=== PATIENT | male | born 1950 | race Caucasian/White ===

== ENCOUNTER 2020-01-10 18:13 | Inpatient (IN) | payer MEDICARE ==
--- NOTE | 2020-01-10 19:21 | RAD ---
CHEST ONE VIEW: History: Generalized weakness. Multiple falls. Comparison: None FINDINGS: Cardiomegaly. Normal pulmonary vessels. Patchy interstitial and alveolar opacities. No pleural effusion or pneumothorax. Remote left clavicle fracture. IMPRESSION: Patchy interstitial and alveolar opacities. Correlate for edema or infiltrate. POS: PPP
[2020-01-10 19:22] LABS: Hemoglobin 6.8 g/dL (14.0-18.0); Mean Corpuscular HGB CONC 33.4 g/dL (32.0-36.0); Mean Corpuscular Hemoglobin 28.6 pg (27.0-31.0); Mean Corpuscular Volume 85.6 fL (78.0-98.0); Mean Platelet Volume 9.7 fL (7.4-10.4); Platelet Count 126 thou/uL (130-400); RBC Distribution Width 16.1 % (11.5-14.5); Red Blood Cell (RBC) Count 2.38 mill/uL (4.70-6.10); White Blood Cell (WBC) Count 9.1 thou/uL (4.8-10.8)
[2020-01-10 19:42] LABS: ALT (SGPT) 26 U/L (8-55); AST (SGOT) 32 U/L (5-34); Albumin 2.9 g/dL (3.4-4.8); Alkaline Phosphatase 96 U/L (40-110); Anion Gap 12 mmol/L (10-20); Anisocytosis SLIGHT = 6-15 cells (100X) (0-5/hpf); BUN (Urea Nitrogen) 30 mg/dL (8.4-25.7); Band 4 % (5-11); Bilirubin, Total 0.4 mg/dL (0.2-1.2); CK (CPK) 136 U/L (30-200); Calc. Creatinine Clearance 0 mL/min (70-130); Carbon Dioxide 27 mmol/L (23-31); Chloride 109 mmol/L (98-107); Estimated GFR-MDRD 43; Glucose 128 mg/dL (83-110); Lymphocytes 7 % (21-51); MDiff Complete? YES; Monocytes 21 % (0-10); Myelocyte 2 % (0-0); Neutrophil 66 % (42-75); Platelet Morphology Comment Appears Decreased; Polychromasia SLIGHT = 2-3 cells (100X) (0-2/hpf); Potassium 3.5 mmol/L (3.5-5.1); Protein, Total 5.9 g/dL (5.8-8.1); Sodium 144 mmol/L (136-145)
[2020-01-10 20:09] LABS: CKMB 5.1 ng/mL (0-6.6)
[2020-01-10] MEDS ORDERED: Pantoprazole 40 MG VIAL ONE (20:10)
[2020-01-10] MEDS ORDERED: Pantoprazole 80 MG, Admixture Fee 1 EACH in Sodium Chloride 0.9% 100 ML IVPB SCH (20:30)
[2020-01-10 21:24] LABS: Bilirubin Negative (Negative); Blood, Urine 2+ (Negative); Clarity Clear (Clear); Glucose, Urine (Dipstick) Normal (Negative); Leukocyte Negative Leu/uL (Negative); Mucous/LPF Rare LPF (<2+); Nitrite Negative (Negative); Protein, Urine (Dipstick) 300 mg/dL (Neg-Trace); Renal Epithelial 0-3 HPF (None Seen); Squamous Epithelial None Seen HPF (0-3); Urobilinogen Normal mg/dL (Less than 2); WBC/HPF 0-3 HPF (0-3)
[2020-01-10 21:27] LABS: INR-International Normal Ratio 1.1; PTT 39.6 sec (22.9-36.1); Prothrombin Time 14.5 sec (12.0-14.7)
[2020-01-10 21:35] LABS: Bacteria/HPF Rare-Few HPF (None Seen)
[2020-01-10] MEDS ORDERED: Sodium Chloride 0.9% 1,000 ML IV SCH (22:17)
[2020-01-10] MEDS ORDERED: Ondansetron ODT 4 MG TAB SL PRN (22:17)
[2020-01-10] MEDS ORDERED: Ondansetron PF 4 MG/2 ML Vial IVP PRN (22:17)
[2020-01-10 23:07] VITALS: BMI 25.7
[2020-01-10 23:45] LABS: Troponin I 1.818 ng/mL (< 0.028)
[2020-01-10] MEDS ORDERED: hydrALAZINE 20 MG/ML VIAL SLOW IVP SCH (23:59)
[2020-01-11] MEDS ORDERED: Sodium Chloride 0.9% 1,000 ML IV SCH (02:15)
[2020-01-11 02:22] LABS: Actual Bicarbonate (HCO3a) 24.5 mEq/L (22-28); Analyzer IN Cardio OR; Base Excess (BEa) -0.6 mEq/L (-2.0 to +3.0); CO2 Tension 41.8 mmHg (35.0-45.0); Calcium, Ionized (arterial) 1.06 mmol/L (1.12-1.30); Carboxyhemoglobin (COHb) 0.9 gm% (0.0-3.0); Hemoglobin (Hb) 7.2 g/dL (14.0-18.0); Potassium - ABG Lab 3.68 mmol/L (3.70-5.30); pH, Arterial 7.39 (7.35-7.45)
[2020-01-11 02:28] LABS: Critical Call Chem Troponin I RESULT DECREASING; Troponin I 1.775 ng/mL (< 0.028)
[2020-01-11] MEDS ORDERED: methylPREDNISolone Sod Succ/PF 125 MG/2 ML VIAL IVP SCH (02:30)
[2020-01-11 02:35] LABS: O2 Tension (PaO2), arterial 59.9 mmHg (> 70.0); Puncture Site LRA
[2020-01-11 02:52] LABS: Anion Gap 13 mmol/L (10-20); BUN (Urea Nitrogen) 27 mg/dL (8.4-25.7); Calc. Creatinine Clearance 45 mL/min (70-130); Calcium 7.7 mg/dL (7.8-10.44); Carbon Dioxide 23 mmol/L (23-31); Chloride 110 mmol/L (98-107); Estimated GFR-MDRD 45; Glucose 128 mg/dL (83-110); Potassium 3.4 mmol/L (3.5-5.1); Sodium 143 mmol/L (136-145)
[2020-01-11] MEDS ORDERED: Ondansetron PF 4 MG/2 ML Vial IVP SCH (03:00)
--- NOTE | 2020-01-11 03:11 | PDOC.HHP ---
Hospitalist HPI - History of Present Illness weakness fall History of Present Illness: Case of an 69y/o male who takes no medication at home who comes to hospital due to weakness. patient states that about 1 week ago he [facility], was discharge home about 1 week ago and since then he been feeling extremely weak, and reports multiple episodes of falls. patient states he had one today and got worried because they episodes were getting worse. at arrival pt was dx with symptomatic anemia and refers has been having black stools for some months. patient denies abd pain n/v fever chills cough or diarrhea. pt also denies sob palpitation diaphoresis or chest pain Hospitalist ROS - Medication Medications: Active Medications Generic Name Dose Route Start Last Admin Trade Name Freq PRN Reason Stop Dose Admin Methylprednisolone Sodium Succinate 60 mg 01/11/20 02:30 01/11/20 02:33 Solu-Medrol IVP 01/11/20 04:30 60 mg NOW DYLAN Administration Hospitalist History - Past Medical History Source: patient - Past Surgical History Past Surgical History: reports: no pertinent history - Family History Family History: reports: cancer, cardiac disorder - Social History Smoking Status: Current every day smoker Alcohol: reports: None Drugs: reports: none Activity level: independent ambulation - Exam General Appearance: NAD, awake alert Eye: PERRL, anicteric sclera ENT: normocephalic atraumatic, no oropharyngeal lesions, moist mucosa Neck: supple, symmetric, no JVD, no thyromegaly Heart: RRR, no murmur, no gallops, no rubs Respiratory: CTAB, no wheezes Gastrointestinal: soft, non-tender, non-distended Extremities: no cyanosis, no clubbing Skin: normal turgor, no lesions, no rashes Neurological: cranial nerve grossly intact, normal sensation to touch Musculoskeletal: normal tone, normal strength, no muscle wasting Psychiatric: normal affect, normal behavior, A&O x 3 Hospitalist Results - Labs Result Diagrams: 01/10/20 19:07 01/11/20 02:27 Lab results: WBC 9.1 thou/uL (4.8-10.8) 01/10/20 19:07 Hgb 6.8 g/dL (14.0-18.0) L 01/10/20 19:07 Hct 20.3 % (42.0-52.0) L 01/10/20 19:07 MCV 85.6 fL (78.0-98.0) 01/10/20 19:07 Plt Count 126 thou/uL (130-400) L 01/10/20 19:07 Band Neuts % (Manual) 4 % (5-11) L 01/10/20 19:07 ABG pH 7.39 (7.35-7.45) 01/11/20 02:17 ABG pCO2 41.8 mmHg (35.0-45.0) 01/11/20 02:17 ABG pO2 59.9 mmHg (> 70.0) L* 01/11/20 02:17 Sodium 143 mmol/L (136-145) 01/11/20 02:27 Potassium 3.4 mmol/L (3.5-5.1) L 01/11/20 02:27 Chloride 110 mmol/L (98-107) H 01/11/20 02:27 Carbon Dioxide 23 mmol/L (23-31) 01/11/20 02:27 BUN 27 mg/dL (8.4-25.7) H 01/11/20 02:27 Creatinine 1.53 mg/dL (0.7-1.3) H 01/11/20 02:27 Glucose 128 mg/dL (83-110) H 01/11/20 02:27 Calcium 7.7 mg/dL (7.8-10.44) L 01/11/20 02:27 Total Bilirubin 0.4 mg/dL (0.2-1.2) 01/10/20 19:07 AST 32 U/L (5-34) 01/10/20 19:07 ALT 26 U/L (8-55) 01/10/20 19:07 Alkaline Phosphatase 96 U/L (40-110) 01/10/20 19:07 Creatine Kinase 136 U/L (30-200) 01/10/20 19:07 CK-MB (CK-2) 5.1 ng/mL (0-6.6) 01/10/20 19:07 Troponin I 1.775 ng/mL (< 0.028) H* 01/11/20 01:28 B-Natriuretic Peptide 1831.3 pg/mL (0-100) H 01/11/20 02:27 Serum Total Protein 5.9 g/dL (5.8-8.1) 01/10/20 19:07 Albumin 2.9 g/dL (3.4-4.8) L 01/10/20 19:07 Urine Ketones Negative mg/dL (Negative) 01/10/20 21:05 Urine Blood 2+ (Negative) A 01/10/20 21:05 Urine Nitrite Negative (Negative) 01/10/20 21:05 Ur Leukocyte Esterase Negative Clair/uL (Negative) 01/10/20 21:05 Urine RBC 4-6 HPF (0-3) A 01/10/20 21:05 Urine WBC 0-3 HPF (0-3) 01/10/20 21:05 Ur Squamous Epith Cells None Seen HPF (0-3) 01/10/20 21:05 Urine Bacteria Rare-Few HPF (None Seen) 01/10/20 21:05 Hospitalist H&P A/P - Problem (1) GI bleeding Code(s): K92.2 - GASTROINTESTINAL HEMORRHAGE, UNSPECIFIED Status: Acute (2) Decompensated heart failure Code(s): I50.9 - HEART FAILURE, UNSPECIFIED Status: Acute (3) Symptomatic anemia Code(s): D64.9 - ANEMIA, UNSPECIFIED Status: Acute (4) Smoker Code(s): F17.200 - NICOTINE DEPENDENCE, UNSPECIFIED, UNCOMPLICATED Status: Acute (5) Elevated troponin Code(s): R79.89 - OTHER SPECIFIED ABNORMAL FINDINGS OF BLOOD CHEMISTRY Status : Acute - Plan Plan: 69y/o male wich likely has pmhx of copd and chf comes to hospital after few episodes of fall found to be anemia black stools and elevated troponins - pt will receive 2 prbcs w lasix - elevated troponin, stable trend likely type 2 HI. no hx of cad probnp elevated in 1.8k, chest xr consistent with pulmonary edema, will start diuresis w lasix. unable to start beta blockers or acei due to current gi bleeding and symptomatic anemia. cardilogy was consulted, likely new onset chf - evaluated modifiable risk factors w statin and a1c -2d echo -gi consulted - protonix drip -npo -adviced to quit smoking - before admission, was called by nurse pt in respiratory distress, was evaluated found w wheezing and decreased lungs sounds was treated w solumedrol 1 dose and prn duo nebs. symptoms resolved, pt likely has undx copd
[2020-01-11 06:31] LABS: #Lymphocytes 0.3 thou/uL (1.20-3.40); #Monocytes 0.4 thou/uL (0.11-0.59); #Neutrophils 6.5 thou/uL (1.40-6.50); %Eosinophils 0.4 % (0.0-10.0); %Monocytes 5.1 % (0.0-10.0); %Neutrophils 90.6 % (42.0-75.0); Hemoglobin 6.2 g/dL (14.0-18.0); Mean Corpuscular HGB CONC 32.4 g/dL (32.0-36.0); Mean Corpuscular Volume 86.4 fL (78.0-98.0); Platelet Count 109 thou/uL (130-400); RBC Distribution Width 16.3 % (11.5-14.5); White Blood Cell (WBC) Count 7.1 thou/uL (4.8-10.8)
[2020-01-11 06:39] LABS: Hemoglobin A1c 5.3 % (4.0-6.0)
[2020-01-11 06:53] LABS: ALT (SGPT) 27 U/L (8-55); AST (SGOT) 30 U/L (5-34); Albumin 2.7 g/dL (3.4-4.8); Alkaline Phosphatase 96 U/L (40-110); Anion Gap 12 mmol/L (10-20); BUN (Urea Nitrogen) 29 mg/dL (8.4-25.7); Bilirubin, Total 0.4 mg/dL (0.2-1.2); Calc. Creatinine Clearance 47 mL/min (70-130); Calcium 7.6 mg/dL (7.8-10.44); Carbon Dioxide 24 mmol/L (23-31); Cardiac Risk 3.2 (Less than 4.5); Chloride 110 mmol/L (98-107); Cholesterol 96 mg/dl (< 200 Desired); Estimated GFR-MDRD 46; Globulin 2.8 g/dL (2.4-3.5); Glucose 121 mg/dL (83-110); HDL Cholesterol 30 mg/dL (>60 Neg Risk); LDL Cholesterol, Calculated 55 mg/dL; Potassium 3.6 mmol/L (3.5-5.1); Protein, Total 5.5 g/dL (5.8-8.1); Sodium 142 mmol/L (136-145); Triglycerides 54 mg/dL (Less than 150)
--- NOTE | 2020-01-11 07:44 | RAD ---
EXAM: Single view of the chest HISTORY: Respiratory distress COMPARISON: 01/10/2020 FINDINGS: Single view of the chest shows an enlarged but stable cardiomediastinal silhouette. There a re worsening scattered airspace opacities in the lungs, most prominent in the right lung base. The bones are unremarkable. IMPRESSION: Multifocal pneumonia
[2020-01-11] MEDS: Furosemide 20 MG/2 ML VIAL SLOW IVP SCH (09:09)
[2020-01-11 09:32] LABS: Critical Call Chem Troponin I RESULT DECREASING; Troponin I 1.403 ng/mL (< 0.028)
--- NOTE | 2020-01-11 12:35 | PDOC.HOSPP ---
- Subjective Encounter Date: 01/11/20 Subjective: Patient reports she is feeling slightly better. She was in the hospital in [facility] for about 2 weeks. He says when he was discharged from there he was given no additional medications. He was on supplemental oxygen at discharge and he had not been prior to admission. The nurse tells me his daughters have indicated that he is known to have significant COPD but is noncompliant. They find his medications in the trash. Apparently they were not ready to discharge him from hospital in [place] but he was threatening to leave AGAINST MEDICAL ADVICE. Today he says he still feels mildly short of breath. Patient reports that he had some lower GI bleeding and underwent endoscopy 2 years ago. He believes he is anemic now because the blood he lost and was never "put back". - Objective Vital Signs & Weight: Vital Signs (12 hours) Temp Pulse Pulse Resp BP BP BP 01/11/20 11:18 97.9 F 77 14 173/83 H 01/11/20 11:02 97.9 F 82 14 162/88 H 01/11/20 08:36 01/11/20 07:36 97.9 F 90 16 173/84 H 01/11/20 07:30 01/11/20 03:25 97.7 F 95 20 165/74 H 01/11/20 02:31 97 28 H 01/11/20 02:29 100 36 H 01/11/20 00:35 85 172/83 H Pulse Ox 01/11/20 11:18 95 01/11/20 11:02 97 01/11/20 08:36 96 01/11/20 07:36 96 01/11/20 07:30 96 01/11/20 03:25 95 01/11/20 02:31 100 01/11/20 02:29 99 01/11/20 00:35 Weight Weight 159 lb 8 oz I&O: 01/10/20 01/11/20 01/12/20 06:59 06:59 06:59 Intake Total 0 Balance 0 Result Diagrams: 01/11/20 08:51 01/11/20 05:59 Additional Labs: Accuchecks 01/11/20 02:19 POC Glucose 135 H Hospitalist ROS - Medication Medications: Active Medications Generic Name Dose Route Start Last Admin Trade Name Freq PRN Reason Stop Dose Admin Furosemide 20 mg 01/11/20 09:00 01/11/20 09:09 Lasix SLOW IVP 20 mg DAILY DYLAN Administration Sodium Chloride 10 ml 01/11/20 09:00 01/11/20 09:11 Flush - Normal Saline IVF Not Given Q12HR DYLAN - Exam General Appearance: NAD, awake alert General - other findings: Fairly difficult to understand Heart: RRR, no murmur, no gallops, no rubs, normal peripheral pulses Respiratory: no wheezes, no rales (Scattered bilateral) Gastrointestinal: soft, non-tender, non-distended, normal bowel sounds, no palpable masses, no hepatomegaly, no splenomegaly, no bruit Extremities: no cyanosis, no clubbing, no edema Skin: normal turgor Musculoskeletal: generalized weakness Psychiatric: normal affect, normal behavior, A&O x 3 Hosp A/P (1) Pneumonia Code(s): J18.9 - PNEUMONIA, UNSPECIFIED ORGANISM Status: Acute (2) Decompensated heart failure Code(s): I50.9 - HEART FAILURE, UNSPECIFIED Status: Acute (3) Elevated troponin Code(s): R79.89 - OTHER SPECIFIED ABNORMAL FINDINGS OF BLOOD CHEMISTRY Status : Acute (4) Smoker Code(s): F17.200 - NICOTINE DEPENDENCE, UNSPECIFIED, UNCOMPLICATED Status: Acute (5) Symptomatic anemia Code(s): D64.9 - ANEMIA, UNSPECIFIED Status: Acute (6) Acute kidney injury Code(s): N17.9 - ACUTE KIDNEY FAILURE, UNSPECIFIED Status: Acute (7) GI bleeding Code(s): K92.2 - GASTROINTESTINAL HEMORRHAGE, UNSPECIFIED Status: Acute - Plan This patient has a bit of a complicated picture. He was recently admitted to the hospital in [place] for pneumonia. He was reportedly there for almost 2 weeks. During that time he was profoundly weak. He says he got up about 4 days while in the hospital using a walker. He was profoundly weak when he got home and was incapable of getting himself up and around adequately so he presented back to the hospital. He has significant anemia and elevated troponins. He has persistent bilateral infiltrates on his x-ray. This may represent pulmonary edema. However, he had 1 COVID test performed in [place]. Given his clinical scenario that only yields about a 50% likelihood that he does not have the COVID. Going to rescreen him now. GI is consulted. However, he has a negative Hemoccult. He apparently does have some history of GI bleeding. Cardiology is consulted. His troponins were not trending but were flat. BNP is significantly elevated at 1800. This may all be related to the fairly severe anemia. He has renal insufficiency. We have no old labs for comparison so it is unknown if this is acute or chronic. I suspect it is more likely chronic. It is not so severe that he should have profound anemia related to that. Initiate a PPI. He is getting some steroids for likely COPD. We will continue bronchodilators.
--- NOTE | 2020-01-11 15:30 | CON ---
DATE OF CONSULTATION: 01/11/2020 REASON FOR CONSULTATION: Anemia, possible GI bleeding. HISTORY OF PRESENT ILLNESS: Vicente Hernandes is a 69-year-old man, who is new to our hospital system. He was admitted to the hospital last night with progressive weakness and multiple recent falls at home. He evidently has a history significant for COPD and ongoing tobacco abuse. Evidently, he was recently hospitalized for almost 2 weeks in [place], got out of the hospital about a week ago, evidently left against medical advice at that time. Since that time, he has had ongoing progressive weakness and multiple falls. Upon presentation here, he was noted to have severe anemia with hemoglobin 6.8, drifted down to 6.2 this morning. This is normocytic anemia. Troponin was also elevated to 1.4 and BNP elevated to 1831. The chest x-ray shows multifocal pneumonia and cardiomegaly. He is getting 2 units of RBC transfusion. He is undergoing some cardiac workup including planned echocardiogram with Cardiology consultation pending. He is being ruled out for COVID at this time. Notably, he is afebrile. He had some significant shortness of breath, which was improved with bronchodilators. He is also receiving IV steroids. Through all of this, he reports he has had no overt bleeding from anywhere. He denies any epistaxis, gross hematuria, hematemesis, melena, or hematochezia. He denies any abdominal pain or nausea. He says his bowel movements are basically regular. He reports having undergone some GI workup with colonoscopy within the past couple of years elsewhere. He says he had multiple polyps removed. He cannot recall anyone giving him an explanation for his chronic anemia, but he says this is indeed chronic. When asked if he has a history of peptic ulcer disease, he believes that he does, but he is unsure when he would have had an upper endoscopy. Notably, he takes no medications at home, evidently has a significant history of noncompliance. REVIEW OF SYSTEMS: Full review of systems including constitutional, head, eyes, ears, nose, throat, GI, , cardiovascular, respiratory, musculoskeletal, and neurologic systems is negative except as noted in the HPI. PAST MEDICAL HISTORY: COPD, pneumonia, chronic anemia, and tobacco abuse. ALLERGIES: PENICILLIN. MEDICATIONS: Outpatient medications, None. Inpatient medications: 1. Lasix IV. 2. DuoNeb. 3. Methylprednisolone IV. 4. Zofran p.r.n. 5. Pantoprazole 40 mg daily. SOCIAL HISTORY: No alcohol or drug abuse. He does smoke. FAMILY HISTORY: Noncontributory. PHYSICAL EXAMINATION: VITAL SIGNS: Temperature 97.9, pulse 77, blood pressure 173/83, and oxygen saturation 95% on 2 L nasal cannula. GENERAL: A 69-year-old man, lying in bed comfortably, in no acute distress. MENTAL: He is alert and oriented to person and place. He can give some vague details about his prior history. SKIN: No jaundice. No rashes were palpable. EYES: No scleral icterus. Extraocular movements intact. ENT: Mucous membranes moist. No oral lesions. LYMPH: No submandibular or supraclavicular lymphadenopathy. THYROID: Nontender to palpation. HEART: Regular rate and rhythm. LUNGS: Bibasilar crackles with faint end-expiratory wheezing. No respiratory distress. ABDOMEN: Bowel sounds present. Soft and nontender to palpation throughout. EXTREMITIES: No peripheral edema. VESSELS: Radial pulses 2+ bilaterally. NEURO: Cranial nerves II through XII intact bilaterally. No focal deficits. LABORATORY STUDIES: Hemoglobin 6.2, MCV 86.4, WBC 7.1, and platelets 109. BUN 29, creatinine 1.49. LFTs all normal. Urinalysis negative. INR 1.1. Hemoglobin A1c only 5.3. BNP elevated to 1831. Troponin elevated to 1.403. FOBT is negative. IMAGING STUDIES: Chest x-ray shows cardiomegaly and multifocal pneumonia. ASSESSMENT AND PLAN: 1. Anemia, severe, symptomatic, normocytic, chronic. Etiology is unclear. He is getting 2 units RBC transfusion. We will go ahead and get iron studies as well as B12 and folic acid levels. Certainly, occult GI bleeding lesion is on the differential, despite his evidently having had endoscopy elsewhere within the past couple of years and despite his negative FOBT here, consider also anemia of chronic disease. It would certainly be reasonable to consider diagnostic esophagogastroduodenoscopy and colonoscopy at some point, but there is no urgency to this with no overt bleeding. Address more acute issues. First, we will give the patient a diet. We can follow along. 2. Multifocal pneumonia. The patient was evidently hospitalized for a couple of weeks in [place] recently with pneumonia and left AMA. COVID test is pending. Cardiology consultation and echocardiogram are also pending. He seems to be responding to bronchodilators and steroids today. 3. Elevated troponin, Cardiology consultation pending. GI can follow along. Again, we could possibly consider diagnostic esophagogastroduodenoscopy and colonoscopy later this admission, once other issues have been resolved. Job ID: [id number]
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
[2020-01-11] MEDS: hydrALAZINE 20 MG/ML VIAL SLOW IVP PRN (18:36)
[2020-01-11] MEDS ORDERED: Prevnar 13-Val Conj/PF 0.5 ML SYRINGE IM ONE (21:00)
[2020-01-12 05:14] LABS: Iron 43 ug/dL (65-175); Iron Binding Capacity, Total 155 mcg/dL (261-462)
[2020-01-12 05:37] LABS: Ferritin 966.44 ng/mL (22-322)
[2020-01-12 05:47] LABS: Hemoglobin 7.3 g/dL (14.0-18.0)
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
[2020-01-12] MEDS: Furosemide 20 MG/2 ML VIAL SLOW IVP SCH (09:12)
--- NOTE | 2020-01-12 14:03 | PDOC.CPN ---
- Subjective Date: 01/12/20 Time: 14:12 Interval history: The pt seen and examined. No overnight events. No cardiac complaints. - Objective Allergies/Adverse Reactions: Allergies Allergy/AdvReac Type Severity Reaction Status Date / Time Penicillins Allergy Unverified 01/10/20 20:23 Visit Medications: Current Medications Albuterol/Ipratropium (Duoneb) 3 ml NEB [id number] PRN PRN Reason: SOB &/or Wheezing Last Admin: 01/11/20 22:52 Dose: 3 ml Furosemide (Lasix) 20 mg SLOW IVP DAILY [facility] Last Admin: 01/12/20 09:12 Dose: 20 mg Hydralazine HCl (Apresoline) 10 mg SLOW IVP Q4H PRN PRN Reason: Hypertension Last Admin: 01/11/20 18:36 Dose: 10 mg Pantoprazole Sodium (Protonix) 40 mg PO DAILY [facility] Last Admin: 01/12/20 09:12 Dose: 40 mg Sodium Chloride (Flush - Normal Saline) 10 ml IVF Q12HR [facility] Last Admin: 01/12/20 09:13 Dose: 10 ml Sodium Chloride (Flush - Normal Saline) 10 ml IVF PRN PRN PRN Reason: Saline Flush Sodium Chloride (Flush - Normal Saline) 10 ml IVF PRN PRN PRN Reason: Saline Flush Vital Signs & Weight: Vital Signs Temp Pulse Resp BP Pulse Ox 01/12/20 08:00 97.9 F 63 18 157/75 H 95 01/12/20 07:41 97 01/12/20 03:39 97.2 F L 72 20 150/82 H 97 Weight 160 lb - Physical Exam General: alert & oriented x3 HEENT: mucus membranes moist Neck: supple neck Cardiac: regular rate and rhythm, S1/S2 Lungs: decreased breath sounds Extremities: other: (nonpitting edema to Rt foot) - Labs Result Diagrams: 01/12/20 04:15 01/11/20 05:59 Troponin/CKMB CK-MB (CK-2) 5.1 ng/mL (0-6.6) 01/10/20 19:07 Troponin I 1.403 ng/mL (< 0.028) H* 01/11/20 05:59 - Telemetry Sinus rhythms and dysrhythmias: sinus rhythm - Assessment/Plan Assessment/Plan: 1. Type NSTEMI - possible 2/2 severe Anemia; asymptomatic. Good possibility he has CAD. This should be evaluated when the Hgb. is stable. 2. PNA - on ABX 3. Anemia with s/p 2 units of PRBCs on 01/11/2020 4. HTN - stable 5. COPD - on 2LNC 6. DM type 2 7. hx of CVA in 09/2018 8. current smoker - strongly recommend smoking cessation 9. non compliance of medication tx MAR reviewed * Echo on 01/11/2020 with EF 50-55%, small PFO with Lt->Rt shunt, mild-mod LAE, mild MR, and trace TR pt. seen and eval. by me. i agree with the a/p by the BODY MAN. He feels better after the 2 units PRBC's. He is still anemic. He has a high probability of CAD with his risk factors. I would suggest he undergo at least a nuclear stress test when the Hgb. is at least 10. He thinks he is going home today or tomorrow and is requesting home O2. I explained that he would have to meet the rquirements but he says that he has an oxygen tank at home and when he realized that it was low or out of O2 he panicked and wanted to go to the hospital. He should be evaluated for O2 prior to d/c if this has not already been done. Chest: decreased BS throughout. CV: RRR, right ankle edema.
--- NOTE | 2020-01-12 15:46 | PDOC.HOSPP ---
- Subjective Encounter Date: 01/12/20 Subjective: Feeling ok. No new complaints. Feels like his breathing is at baseline for him. - Objective Vital Signs & Weight: Vital Signs (12 hours) Temp Pulse Resp BP Pulse Ox 01/12/20 12:00 97.6 F 70 18 159/85 H 95 01/12/20 08:00 97.9 F 63 18 157/75 H 95 01/12/20 07:41 97 Weight Weight 160 lb I&O: 01/11/20 01/12/20 01/13/20 06:59 06:59 06:59 Intake Total 1300 Output Total 200 Balance 1100 Result Diagrams: 01/12/20 04:15 01/11/20 05:59 Hospitalist ROS - Medication Medications: Active Medications Generic Name Dose Route Start Last Admin Trade Name Freq PRN Reason Stop Dose Admin Albuterol/Ipratropium 3 ml 01/11/20 02:59 01/11/20 22:52 Duoneb NEB 3 ml [id number] PRN Administration SOB &/or Wheezing Furosemide 20 mg 01/11/20 09:00 01/12/20 09:12 Lasix SLOW IVP 20 mg DAILY DYLAN Administration Hydralazine HCl 10 mg 01/11/20 12:34 01/11/20 18:36 Apresoline SLOW IVP 10 mg Q4H PRN Administration Hypertension Pantoprazole Sodium 40 mg 01/12/20 09:00 01/12/20 09:12 Protonix PO 40 mg DAILY DYLAN Administration Sodium Chloride 10 ml 01/11/20 09:00 01/12/20 09:13 Flush - Normal Saline IVF 10 ml Q12HR DYLAN Administration - Exam General Appearance: NAD, awake alert Heart: RRR, no murmur, no gallops, no rubs, normal peripheral pulses Respiratory: no wheezes, rales (Mild bilateral.) Gastrointestinal: soft, non-tender, non-distended, normal bowel sounds, no palpable masses, no hepatomegaly, no splenomegaly, no bruit Extremities: no cyanosis, no clubbing, no edema Skin: normal turgor Musculoskeletal: generalized weakness Psychiatric: normal affect, normal behavior, A&O x 3 Hosp A/P (1) Pneumonia Code(s): J18.9 - PNEUMONIA, UNSPECIFIED ORGANISM Status: Resolved (2) Decompensated heart failure Code(s): I50.9 - HEART FAILURE, UNSPECIFIED Status: Acute (3) Elevated troponin Code(s): R79.89 - OTHER SPECIFIED ABNORMAL FINDINGS OF BLOOD CHEMISTRY Status : Acute (4) Smoker Code(s): F17.200 - NICOTINE DEPENDENCE, UNSPECIFIED, UNCOMPLICATED Status: Chronic (5) Symptomatic anemia Code(s): D64.9 - ANEMIA, UNSPECIFIED Status: Acute (6) Acute kidney injury Code(s): N17.9 - ACUTE KIDNEY FAILURE, UNSPECIFIED Status: Ruled-out (7) GI bleeding Code(s): K92.2 - GASTROINTESTINAL HEMORRHAGE, UNSPECIFIED Status: Acute (8) Myocardial infarct Code(s): I21.9 - ACUTE MYOCARDIAL INFARCTION, UNSPECIFIED Status: Acute Qualifiers: Myocardial infarction type: type 2 Qualified Code(s): I21.A1 - Myocardial infarction type 2 (9) HTN (hypertension) Code(s): I10 - ESSENTIAL (PRIMARY) HYPERTENSION Status: Chronic (10) CKD (chronic kidney disease), stage III Code(s): N18.3 - CHRONIC KIDNEY DISEASE, STAGE 3 (MODERATE) Status: Acute (11) Thrombocytopenia Code(s): D69.6 - THROMBOCYTOPENIA, UNSPECIFIED Status: Acute - Plan Pneumonia: This patient was recently admitted to the hospital in [place] for almost 2 weeks. During that time he was treated for pneumonia. He had a negative COVID test at that time per his recollection. Apparently he was ready to leave AGAINST MEDICAL ADVICE and they were not quite ready for him to leave. They did ultimately discharge him to home. He currently shows no signs of pneumonia. He has no leukocytosis, fever, increased work of breathing. He feels like his breathing is at baseline. His repeat COVID test is negative. He does have some persistent infiltrates on his chest x-ray but I believe these are residual from his prior infection and there is no indication for acute treatment with antibiotics. NSTEMI type II: This patient has elevated troponins consistent with an NSTEMI. It appears to be most likely related to type II NSTEMI from severe anemia. His echocardiogram shows no significant wall motion abnormalities and a preserved ejection fraction. Appreciate cardiology input. Continue to work on blood pressure control. May consider additional cardiac work-up once he is more stable from a GI perspective. Severe anemia: Etiology is unclear. He has a negative Hemoccult. However, he has a history of GI bleeding. It appears he is likely stable from a cardiac perspective to consider endoscopy if that is indicated. He has normal B12 and folate levels. His ferritin is actually elevated which could be some residual acute phase reactant from his recent pneumonia. His iron and TIBC are slightly low. He does have some chronic kidney disease which is likely somewhat contributory as well. GI considering possibility of endoscopy. In the meantime we will continue to monitor his hemoglobin and transfuse as needed. There is also a component of the thrombocytopenia present. COPD: Patient appears to have significant baseline COPD. He has some mild baseline tachypnea which he feels is completely at his baseline. Will provide PRN nebulizers. He does not appear to be in significant exacerbation warranting antibiotics or steroids. Chronic kidney disease: Very difficult to know without prior labs whether the patient has acute kidney injury or chronic kidney disease. Given the fact that his numbers have not changed significantly it is increasingly likely that this represents a chronic kidney disease stage III. Congestive heart failure: He has a preserved ejection fraction. I suspect this is likely high-output failure secondary to the severe anemia. Possible GI bleed: As above. Continue with PPI. Thrombocytopenia: In the setting of anemia. Stable.
[2020-01-12] MEDS ORDERED: GoLYTELY 4,000 ml Bottle PO SCH (17:15)
[2020-01-12 17:53] LABS: Reticulocyte Count 2.7 % (0.5-1.5)
[2020-01-12 17:54] LABS: Hemoglobin 7.8 g/dL (14.0-18.0)
--- NOTE | 2020-01-12 18:04 | PRG ---
DATE OF SERVICE: 01/12/2020 SUBJECTIVE: The patient feels weak, but otherwise without any other complaint. He denies any nausea, vomiting, or abdominal pain. No signs of overt bleeding. PHYSICAL EXAMINATION: VITAL SIGNS: Temperature is 98.1, blood pressure 165/81, pulse of 75. GENERAL: He is alert, sitting up, in no distress. HEENT: Exam shows anicteric sclerae. Oropharynx is clear and moist. CV: Shows normal S1 and S2. Regular rate and rhythm. CHEST: Shows breath sounds. ABDOMEN: Soft and nontender. He has active bowel sounds. EXTREMITIES: Exam shows no edema. LABORATORY DATA: Hemoglobin 7.3 up from 6.2, MCV of 86, platelet count 109, WBC 7.1. His ferritin is 966, TIBC 155, iron 43, B12 of 689, folic acid 7.1. ASSESSMENT: 1. Severe anemia, symptomatic without any overt bleeding. Lab parameters suggest mixed-type anemia without any true iron deficiency component. 2. [id number] myocardial infarction, likely from severe symptomatic anemia. 3. Chronic obstructive pulmonary disease/pneumonia. 4. Hypertension. 5. Diabetes. PLAN: 1. We will proceed with diagnostic EGD and colonoscopy in a.m. Indication discussed with the patient. He agrees to proceed. 2. Bowel prep tonight. Job ID: [id number]
[2020-01-12] MEDS: Carvedilol 3.125 MG TAB PO SCH (18:12)
--- NOTE | 2020-01-12 18:17 | EKG ---
Test Reason : Blood Pressure : / mmHG Vent. Rate : 075 BPM Atrial Rate : 075 BPM P-R Int : 152 ms QRS Dur : 092 ms QT Int : 416 ms P-R-T Axes : 062 019 166 degrees QTc Int : 464 ms Sinus rhythm with occasional Premature ventricular complexes and Premature atrial complexes Prolonged QT Abnormal ECG When compared with ECG of 10-JAN-2020 18:32, (Unconfirmed) No significant change was found Confirmed by EMILY CUELLAR (2) on 01/12/2020 6:17:15 PM Referred By: ERIC RAI Confirmed By:EMILY CUELLAR
[2020-01-13] MEDS ORDERED: Ketamine 50 MG/ML (10ML VIAL) ONE (08:50)
[2020-01-13] MEDS ORDERED: Labetalol HCl 100 MG/20 ML VIAL ONE (09:39)
[2020-01-13] MEDS ORDERED: PROPOFOL 200 MG/20 ML VIAL ONE (09:39)
[2020-01-13] MEDS: Amlodipine 5 MG TAB PO SCH (11:37)
[2020-01-13] MEDS: Carvedilol 3.125 MG TAB PO SCH (11:37)
[2020-01-13] MEDS: Furosemide 20 MG/2 ML VIAL SLOW IVP SCH (11:38)
--- NOTE | 2020-01-13 11:51 | PDOC.CPN ---
- Subjective Date: 01/13/20 Time: 08:30 Interval history: The pt seen and examined. No overnight events. No cardiac complaint this AM - Objective Allergies/Adverse Reactions: Allergies Allergy/AdvReac Type Severity Reaction Status Date / Time Penicillins Allergy Unverified 01/10/20 20:23 Visit Medications: Current Medications Albuterol/Ipratropium (Duoneb) 3 ml NEB [id number] PRN PRN Reason: SOB &/or Wheezing Last Admin: 01/13/20 02:43 Dose: 3 ml Amlodipine Besylate (Norvasc) 5 mg PO DAILY [facility] Last Admin: 01/13/20 11:37 Dose: 5 mg Carvedilol (Coreg) 3.125 mg PO BID[facility] Last Admin: 01/13/20 11:37 Dose: 3.125 mg Furosemide (Lasix) 20 mg SLOW IVP DAILY [facility] Last Admin: 01/13/20 11:38 Dose: 20 mg Hydralazine HCl (Apresoline) 10 mg SLOW IVP Q4H PRN PRN Reason: Hypertension Last Admin: 01/11/20 18:36 Dose: 10 mg Pantoprazole Sodium (Protonix) 40 mg PO DAILY [facility] Last Admin: 01/13/20 11:37 Dose: 40 mg Sodium Chloride (Flush - Normal Saline) 10 ml IVF Q12HR [facility] Last Admin: 01/13/20 11:38 Dose: 10 ml Sodium Chloride (Flush - Normal Saline) 10 ml IVF PRN PRN PRN Reason: Saline Flush Vital Signs & Weight: Vital Signs Temp Pulse Resp BP BP Pulse Ox 01/13/20 11:37 69 164/81 H 01/13/20 10:50 97.8 F 80 17 167/81 H 97 01/13/20 07:30 97.4 F L 78 11 L 189/94 H 95 01/13/20 03:45 98.1 F 81 16 181/87 H 95 01/13/20 02:43 83 16 96 Weight 159 lb 5 oz - Physical Exam General: alert & oriented x3 HEENT: mucus membranes moist Neck: supple neck Cardiac: regular rate and rhythm, S1/S2 Lungs: decreased breath sounds Extremities: no edema - Labs Result Diagrams: 01/12/20 17:44 01/11/20 05:59 Troponin/CKMB CK-MB (CK-2) 5.1 ng/mL (0-6.6) 01/10/20 19:07 Troponin I 1.403 ng/mL (< 0.028) H* 01/11/20 05:59 - Telemetry Sinus rhythms and dysrhythmias: sinus rhythm - Assessment/Plan Assessment/Plan: 1. Type NSTEMI - possible 2/2 severe Anemia; asymptomatic. Good possibility he has CAD. This should be evaluated when the Hgb is > 10. 2. PNA - on ABX 3. Anemia with s/p 2 units of PRBCs on 01/11/2020 - EGD today 4. HTN - stable 5. COPD - on 2LNC 6. DM type 2 7. hx of CVA in 09/2018 8. current smoker - strongly recommend smoking cessation 9. CKD 10. non compliance of medication tx MAR reviewed * Echo on 01/11/2020 with EF 50-55%, small PFO with Lt->Rt shunt, mild-mod LAE, mild MR, and trace TR Pt. seen and eval. by me. I agree with the A/P by the HHA. GI did not find any acute reason for the anemia. Possible chronic dz. If possible would transfuse to a Hgb. of 10 and then proceed with stress testing. If abnormal then cardiac cath.Would prefer not to cath with a Hgb. < 10.0. Suggest hematology consult for chronic anemia, no acute GI bleed etiology of blood loss noted. estevan
--- NOTE | 2020-01-13 14:00 | OP ---
DATE OF PROCEDURE: 01/13/2020 PROCEDURES PERFORMED: 1. Esophagogastroduodenoscopy with biopsy. 2. Colonoscopy with polypectomy. PREPROCEDURE DIAGNOSIS: Anemia. POSTOPERATIVE DIAGNOSES: 1. Esophagogastroduodenoscopy notable for plaque-like changes in the antrum of the stomach, suggestive of intestinal metaplasia. No bleeding sites seen. Multiple biopsies obtained from the antrum and the body of the stomach, submitted to Pathology. 2. Colonoscopy notable for pandiverticulosis, borderline prep. No large masses identified. Two small polyps in the ascending colon, removed. RECOMMENDATIONS: This is a likely anemia of chronic disease with elevated ferritin, low TIBC and iron, normocytic anemia and heme-negative stool. We will follow from a distance and follow up on biopsies. ANESTHESIA: TIVA. PROCEDURE IN DETAIL: After the patient was informed of the risks, benefits, and possible complications of endoscopy including perforation, bleeding, reaction to medication, and aspiration, informed consent was obtained. The patient was brought to endoscopy suite where he was sedated in gradual fashion. Once he was comfortable, a bite block was placed inside the orifice. The endoscope was advanced through the esophagus, stomach, into the 2nd and 3rd portions of the duodenum and slowly removed. The esophagus was normal. The stomach was notable for plaque-like changes of the mucosa in the periantral region on i-scan imaging. There was no evidence of nodules or masses concerning. Random biopsies were taken through this area. This was likely an intestinal metaplasia. Retroflexed views were normal. The stomach biopsies were also taken in the normal-appearing body of the stomach. The duodenum was normal to the 3rd portion with no ulcers, lesions, or AVMs. The scope was removed. The patient tolerated the procedure well. There were no complications. The patient was turned to the room and a rectal exam was performed, which was normal. The endoscope was advanced from the anal canal through the colon to the cecum. The prep was marginal, but we were able to irrigate, so that we did not miss any polyps larger than 6 mm in size. There was pandiverticulosis. There were two small 1 to 2-mm polyps in the ascending colon, removed by cold snare polypectomy and submitted to Pathology. There were no other lesions seen. Retroflexed views were normal. The scope was removed. The patient tolerated the procedure well. There were no complications. Job ID: [id number]
--- NOTE | 2020-01-13 15:06 | PDOC.HOSPP ---
- Subjective Encounter Date: 01/13/20 Subjective: Patient is doing a little better today. He denies any specific complaints. Tolerated endoscopy well. - Objective Vital Signs & Weight: Vital Signs (12 hours) Temp Pulse Resp BP BP Pulse Ox 01/13/20 11:37 69 164/81 H 01/13/20 10:50 97.8 F 80 17 167/81 H 97 01/13/20 07:30 97.4 F L 78 11 L 189/94 H 95 01/13/20 03:45 98.1 F 81 16 181/87 H 95 Weight Weight 159 lb 5 oz I&O: 01/12/20 01/13/20 01/14/20 06:59 06:59 06:59 Intake Total 1300 4840 Output Total 200 650 100 Balance 1100 4190 -100 Result Diagrams: 01/12/20 17:44 01/11/20 05:59 Hospitalist ROS - Medication Medications: Active Medications Generic Name Dose Route Start Last Admin Trade Name Freq PRN Reason Stop Dose Admin Albuterol/Ipratropium 3 ml 01/11/20 02:59 01/13/20 02:43 Duoneb NEB 3 ml [id number] PRN Administration SOB &/or Wheezing Amlodipine Besylate 5 mg 01/13/20 09:00 01/13/20 11:37 Norvasc PO 5 mg DAILY DYLAN Administration Carvedilol 3.125 mg 01/12/20 17:00 01/13/20 11:37 Coreg PO 3.125 mg BID-WM DYLAN Administration Furosemide 20 mg 01/11/20 09:00 01/13/20 11:38 Lasix SLOW IVP 20 mg DAILY DYLAN Administration Hydralazine HCl 10 mg 01/11/20 12:34 01/11/20 18:36 Apresoline SLOW IVP 10 mg Q4H PRN Administration Hypertension Pantoprazole Sodium 40 mg 01/12/20 09:00 01/13/20 11:37 Protonix PO 40 mg DAILY DYLAN Administration Sodium Chloride 10 ml 01/11/20 09:00 01/13/20 11:38 Flush - Normal Saline IVF 10 ml Q12HR DYLAN Administration - Exam General Appearance: NAD, awake alert Neck: supple, symmetric, no JVD, no thyromegaly, no lymphadenopathy, no carotid bruit Heart: RRR, no murmur, no gallops, no rubs, normal peripheral pulses Respiratory: CTAB, no wheezes, no rales, no ronchi, normal chest expansion, no tachypnea, normal percussion Gastrointestinal: soft, non-tender, non-distended, normal bowel sounds, no palpable masses, no hepatomegaly, no splenomegaly, no bruit Extremities: no cyanosis, no clubbing, no edema Skin: normal turgor, no lesions, no rashes Hosp A/P (1) Pneumonia Code(s): J18.9 - PNEUMONIA, UNSPECIFIED ORGANISM Status: Resolved (2) Decompensated heart failure Code(s): I50.9 - HEART FAILURE, UNSPECIFIED Status: Acute (3) Elevated troponin Code(s): R79.89 - OTHER SPECIFIED ABNORMAL FINDINGS OF BLOOD CHEMISTRY Status : Acute (4) Smoker Code(s): F17.200 - NICOTINE DEPENDENCE, UNSPECIFIED, UNCOMPLICATED Status: Chronic (5) Symptomatic anemia Code(s): D64.9 - ANEMIA, UNSPECIFIED Status: Acute (6) Acute kidney injury Code(s): N17.9 - ACUTE KIDNEY FAILURE, UNSPECIFIED Status: Ruled-out (7) GI bleeding Code(s): K92.2 - GASTROINTESTINAL HEMORRHAGE, UNSPECIFIED Status: Acute (8) Myocardial infarct Code(s): I21.9 - ACUTE MYOCARDIAL INFARCTION, UNSPECIFIED Status: Acute Qualifiers: Myocardial infarction type: type 2 Qualified Code(s): I21.A1 - Myocardial infarction type 2 (9) HTN (hypertension) Code(s): I10 - ESSENTIAL (PRIMARY) HYPERTENSION Status: Chronic (10) CKD (chronic kidney disease), stage III Code(s): N18.3 - CHRONIC KIDNEY DISEASE, STAGE 3 (MODERATE) Status: Acute (11) Thrombocytopenia Code(s): D69.6 - THROMBOCYTOPENIA, UNSPECIFIED Status: Acute - Plan Pneumonia: This patient was recently admitted to the hospital in [place] for almost 2 weeks. During that time he was treated for pneumonia. He had a negative COVID test at that time per his recollection. Apparently he was ready to leave AGAINST MEDICAL ADVICE and they were not quite ready for him to leave. They did ultimately discharge him to home. He currently shows no signs of pneumonia. He has no leukocytosis, fever, increased work of breathing. He feels like his breathing is at baseline. His repeat COVID test is negative. He does have some persistent infiltrates on his chest x-ray but I believe these are residual from his prior infection and there is no indication for acute treatment with antibiotics. NSTEMI type II: This patient has elevated troponins consistent with an NSTEMI. It appears to be most likely related to type II NSTEMI from severe anemia. His echocardiogram shows no significant wall motion abnormalities and a preserved ejection fraction. Appreciate cardiology input. Continue to work on blood pressure control. May consider additional cardiac work-up once he is more stable from a GI perspective. He had no evidence of bleeding on his endoscopy today. Discussed with cardiology. May anticipate stress test tomorrow. Severe anemia: Etiology is unclear. He has a negative Hemoccult. However, he has a history of GI bleeding. He has normal B12 and folate levels. His ferritin is actually elevated which could be some residual acute phase reactant from his recent pneumonia. His iron and TIBC are slightly low. He does have some chronic kidney disease which is likely somewhat contributory as well. Endoscopy did not reveal any specific source of bleeding. COPD: Patient appears to have significant baseline COPD. He has some mild baseline tachypnea which he feels is completely at his baseline. Will provide PRN nebulizers. He does not appear to be in significant exacerbation warranting antibiotics or steroids. Chronic kidney disease: Very difficult to know without prior labs whether the patient has acute kidney injury or chronic kidney disease. Given the fact that his numbers have not changed significantly it is increasingly likely that this represents a chronic kidney disease stage III. Congestive heart failure: He has a preserved ejection fraction. I suspect this is likely high-output failure secondary to the severe anemia. Possible GI bleed: As above. Continue with PPI. Thrombocytopenia: In the setting of anemia. Stable. Disposition: Anticipate possible stress test for tomorrow now that there is no specific source of bleeding identified. We will ask physical therapy to assess the patient today. Consult case management for possibility of home health at discharge.
[2020-01-13] MEDS: Carvedilol 6.25 MG TAB PO SCH (17:20)
[2020-01-14] MEDS: hydrALAZINE 20 MG/ML VIAL SLOW IVP PRN (07:57)
[2020-01-14] MEDS: Furosemide 20 MG/2 ML VIAL SLOW IVP SCH (07:59)
[2020-01-14] MEDS: Amlodipine 5 MG TAB PO SCH (08:35)
[2020-01-14 08:46] LABS: Anion Gap 14 mmol/L (10-20); BUN (Urea Nitrogen) 27 mg/dL (8.4-25.7); Calc. Creatinine Clearance 45 mL/min (70-130); Carbon Dioxide 25 mmol/L (23-31); Chloride 106 mmol/L (98-107); Estimated GFR-MDRD 45; Glucose 85 mg/dL (83-110); Potassium 3.9 mmol/L (3.5-5.1); Sodium 141 mmol/L (136-145)
[2020-01-14 08:59] LABS: #Lymphocytes 0.8 thou/uL (1.20-3.40); #Monocytes 0.6 thou/uL (0.11-0.59); #Neutrophils 6.1 thou/uL (1.40-6.50); %Basophils 0.1 % (0.0-1.0); %Eosinophils 0.2 % (0.0-10.0); %Lymphocytes 10.1 % (21.0-51.0); %Neutrophils 81.6 % (42.0-75.0); Hemoglobin 10.2 g/dL (14.0-18.0); Mean Corpuscular HGB CONC 32.9 g/dL (32.0-36.0); Mean Corpuscular Hemoglobin 29.3 pg (27.0-31.0); Mean Platelet Volume 10.2 fL (7.4-10.4); Platelet Count 104 thou/uL (130-400); Platelet Morphology Comment Appears Decreased; RBC Distribution Width 15.8 % (11.5-14.5); Red Blood Cell (RBC) Count 3.47 mill/uL (4.70-6.10); White Blood Cell (WBC) Count 7.5 thou/uL (4.8-10.8)
[2020-01-14 09:00] LABS: MDiff Complete? YES
[2020-01-14] MEDS: Carvedilol 6.25 MG TAB PO SCH ×2 (10:30→17:06)
--- NOTE | 2020-01-14 11:05 | PDOC.HOSPP ---
- Subjective Encounter Date: 01/14/20 Subjective: Patient reports he had anxiety regarding the stress test and therefore did not sleep through the night. Sounds like he is simply concerned about risk associated with getting medications. He had a bad experience with an exercise treadmill test at one point. Otherwise generally feels okay. Inquires about disposition. - Objective Vital Signs & Weight: Vital Signs (12 hours) Temp Pulse Pulse Pulse Resp BP BP 01/14/20 10:30 191/104 H 01/14/20 09:41 92 121/55 L 01/14/20 08:40 98.1 F 86 18 01/14/20 08:35 82 191/104 H 01/14/20 07:57 78 191/104 H 01/14/20 04:55 01/14/20 04:00 98.3 F 77 18 01/14/20 03:48 20 01/14/20 03:05 110 H 24 H 01/14/20 03:01 01/14/20 01:13 97.8 F 67 20 BP BP Pulse Ox Pulse Ox Pulse Ox Pulse Ox 01/14/20 10:30 01/14/20 09:41 96 94 L 97 01/14/20 08:40 168/86 H 97 01/14/20 08:35 01/14/20 07:57 01/14/20 04:55 166/94 H 01/14/20 04:00 186/93 H 96 01/14/20 03:48 95 01/14/20 03:05 134/90 95 01/14/20 03:01 97 01/14/20 01:13 169/97 H 97 Weight Weight 159 lb 5 oz I&O: 01/13/20 01/14/20 01/15/20 06:59 06:59 06:59 Intake Total 4840 1780 Output Total 650 225 Balance 4190 1555 Result Diagrams: 01/14/20 08:13 01/14/20 08:13 Additional Labs: Accuchecks 01/14/20 01/14/20 03:54 03:15 POC Glucose 123 H 107 Hospitalist ROS - Medication Medications: Active Medications Generic Name Dose Route Start Last Admin Trade Name Freq PRN Reason Stop Dose Admin Albuterol/Ipratropium 3 ml 01/11/20 02:59 01/14/20 03:48 Duoneb NEB 3 ml [id number] PRN Administration SOB &/or Wheezing Amlodipine Besylate 5 mg 01/13/20 09:00 01/14/20 08:35 Norvasc PO 5 mg DAILY DYLAN Administration Carvedilol 6.25 mg 01/13/20 17:00 01/14/20 10:30 Coreg PO Not Given BID-WM DYLAN Furosemide 20 mg 01/11/20 09:00 01/14/20 07:59 Lasix SLOW IVP 20 mg DAILY DYLAN Administration Hydralazine HCl 10 mg 01/11/20 12:34 01/14/20 07:57 Apresoline SLOW IVP 10 mg Q4H PRN Administration Hypertension Pantoprazole Sodium 40 mg 01/12/20 09:00 01/14/20 08:35 Protonix PO 40 mg DAILY DYLAN Administration Sodium Chloride 10 ml 01/11/20 09:00 01/14/20 10:30 Flush - Normal Saline IVF 10 ml Q12HR DYLAN Administration - Exam General Appearance: NAD, awake alert Heart: RRR, no murmur, no gallops, no rubs, normal peripheral pulses Respiratory: CTAB, no wheezes, no rales, no ronchi, normal chest expansion, no tachypnea, normal percussion Respiratory - other findings: Diminished throughout. Gastrointestinal: soft, non-tender, non-distended, normal bowel sounds, no palpable masses, no hepatomegaly, no splenomegaly, no bruit Extremities: no cyanosis, no clubbing, no edema Skin: normal turgor Musculoskeletal: generalized weakness Psychiatric: normal affect, normal behavior, A&O x 3 Hosp A/P (1) Pneumonia Code(s): J18.9 - PNEUMONIA, UNSPECIFIED ORGANISM Status: Resolved (2) Decompensated heart failure Code(s): I50.9 - HEART FAILURE, UNSPECIFIED Status: Acute (3) Elevated troponin Code(s): R79.89 - OTHER SPECIFIED ABNORMAL FINDINGS OF BLOOD CHEMISTRY Status : Acute (4) Smoker Code(s): F17.200 - NICOTINE DEPENDENCE, UNSPECIFIED, UNCOMPLICATED Status: Chronic (5) Symptomatic anemia Code(s): D64.9 - ANEMIA, UNSPECIFIED Status: Acute (6) Acute kidney injury Code(s): N17.9 - ACUTE KIDNEY FAILURE, UNSPECIFIED Status: Ruled-out (7) GI bleeding Code(s): K92.2 - GASTROINTESTINAL HEMORRHAGE, UNSPECIFIED Status: Acute (8) Myocardial infarct Code(s): I21.9 - ACUTE MYOCARDIAL INFARCTION, UNSPECIFIED Status: Acute Qualifiers: Myocardial infarction type: type 2 Qualified Code(s): I21.A1 - Myocardial infarction type 2 (9) HTN (hypertension) Code(s): I10 - ESSENTIAL (PRIMARY) HYPERTENSION Status: Chronic (10) CKD (chronic kidney disease), stage III Code(s): N18.3 - CHRONIC KIDNEY DISEASE, STAGE 3 (MODERATE) Status: Acute (11) Thrombocytopenia Code(s): D69.6 - THROMBOCYTOPENIA, UNSPECIFIED Status: Acute - Plan Pneumonia: This patient was recently admitted to the hospital in [place] for almost 2 weeks. During that time he was treated for pneumonia. He had a negative COVID test at that time per his recollection. Apparently he was ready to leave AGAINST MEDICAL ADVICE and they were not quite ready for him to leave. They did ultimately discharge him to home. He currently shows no signs of pneumonia. He has no leukocytosis, fever, increased work of breathing. He feels like his breathing is at baseline. His repeat COVID test is negative. He does have some persistent infiltrates on his chest x-ray but I believe these are residual from his prior infection and there is no indication for acute treatment with antibiotics. NSTEMI type II: This patient has elevated troponins consistent with an NSTEMI. It appears to be most likely related to type II NSTEMI from severe anemia. His echocardiogram shows no significant wall motion abnormalities and a preserved ejection fraction. Appreciate cardiology input. Stress test today. Severe anemia: Etiology is unclear. He has a negative Hemoccult. However, he has a history of GI bleeding. He has normal B12 and folate levels. His ferritin is actually elevated which could be some residual acute phase reactant from his recent pneumonia. His iron and TIBC are slightly low. He does have some chronic kidney disease which is likely somewhat contributory as well. Endoscopy did not reveal any specific source of bleeding. Suspected anemia of chronic disease. He will likely need outpatient follow-up with hematology/oncology. COPD: Patient appears to have significant baseline COPD. He has some mild baseline tachypnea which he feels is completely at his baseline. Will provide PRN nebulizers. He does not appear to be in significant exacerbation warranting antibiotics or steroids. Chronic kidney disease: Very difficult to know without prior labs whether the patient has acute kidney injury or chronic kidney disease. Given the fact that his numbers have not changed significantly it is increasingly likely that this represents a chronic kidney disease stage III. Congestive heart failure: He has a preserved ejection fraction. I suspect this is likely high-output failure secondary to the severe anemia. Possible GI bleed: As above. Continue with PPI. Thrombocytopenia: In the setting of anemia. Stable. Disposition: Appreciate physical therapy assessment. Patient appeared to walk about 92 feet with a rolling walker. Their recommendation is home with home health. That will be our goal.
--- NOTE | 2020-01-14 13:51 | PDOC.CPN ---
- Subjective Date: 01/14/20 Time: 08:00 Interval history: The pt seen and examined. No overnight events. No cardiac complaints. - Objective Allergies/Adverse Reactions: Allergies Allergy/AdvReac Type Severity Reaction Status Date / Time Penicillins Allergy Verified 01/14/20 15:52 Visit Medications: Current Medications Albuterol/Ipratropium (Duoneb) 3 ml NEB [id number] PRN PRN Reason: SOB &/or Wheezing Last Admin: 01/14/20 03:48 Dose: 3 ml Carvedilol (Coreg) 6.25 mg PO BID-WM [facility] Last Admin: 01/14/20 10:30 Dose: Not Given Furosemide (Lasix) 20 mg SLOW IVP DAILY [facility] Last Admin: 01/14/20 07:59 Dose: 20 mg Hydralazine HCl (Apresoline) 10 mg SLOW IVP Q4H PRN PRN Reason: Hypertension Last Admin: 01/14/20 07:57 Dose: 10 mg Pantoprazole Sodium (Protonix) 40 mg PO DAILY [facility] Last Admin: 01/14/20 08:35 Dose: 40 mg Sodium Chloride (Flush - Normal Saline) 10 ml IVF Q12HR DYLAN Last Admin: 01/14/20 10:30 Dose: 10 ml Sodium Chloride (Flush - Normal Saline) 10 ml IVF PRN PRN PRN Reason: Saline Flush Vital Signs & Weight: Vital Signs Temp Pulse Pulse Resp BP BP BP 01/14/20 10:30 191/104 H 01/14/20 09:41 92 121/55 L 01/14/20 08:40 98.1 F 86 18 168/86 H 01/14/20 08:35 82 191/104 H 01/14/20 07:57 78 191/104 H 01/14/20 07:40 01/14/20 04:55 166/94 H 01/14/20 04:00 98.3 F 77 18 186/93 H 01/14/20 03:48 20 01/14/20 03:05 110 H 24 H 134/90 01/14/20 03:01 Pulse Ox Pulse Ox Pulse Ox Pulse Ox 01/14/20 10:30 01/14/20 09:41 96 94 L 97 01/14/20 08:40 97 01/14/20 08:35 01/14/20 07:57 01/14/20 07:40 96 01/14/20 04:55 01/14/20 04:00 96 01/14/20 03:48 95 01/14/20 03:05 95 01/14/20 03:01 97 Weight 159 lb 5 oz - Physical Exam General: alert & oriented x3 HEENT: mucus membranes moist Neck: supple neck Cardiac: regular rate and rhythm, S1/S2 Lungs: decreased breath sounds Extremities: no edema - Labs Result Diagrams: 01/14/20 08:13 01/14/20 08:13 Troponin/CKMB CK-MB (CK-2) 5.1 ng/mL (0-6.6) 01/10/20 19:07 Troponin I 1.403 ng/mL (< 0.028) H* 01/11/20 05:59 - Telemetry Sinus rhythms and dysrhythmias: sinus rhythm - Assessment/Plan Assessment/Plan: 1. Type 2 NSTEMI - possible 2/2 severe Anemia; asymptomatic. Good possibility he has CAD. Stress test today. 2. PNA - on ABX 3. Anemia with s/p total 4 units of PRBCs Tx - Hgb on 01/14/2020 after 2 units PRBCs was 10.2; EGD on 01/13/2020 was negative 4. HTN - 5. COPD - on 2LNC 6. DM type 2 7. hx of CVA in 09/2018 8. current smoker - strongly recommend smoking cessation 9. CKD 10. non compliance of medication tx MAR reviewed * Echo on 01/11/2020 with EF 50-55%, small PFO with Lt->Rt shunt, mild-mod LAE, mild MR, and trace TR Pt. seen and eval. by me. I agree with the A/P by the DIRECTOR OF [employer] MARKET[employer]. The stress test is negative for reversible ischemia. He is feeling better after transfusion to get the Hgb. above 10. He is stable for d/c. from a cardiac standpoint. I can see him in the office in 2-4 weeks.Chest clear. RRR. He is at decreased risk of sudden cardiac events with the NSVTACH since the EF is WNL and the stress test is negative for ischemia. I explained to him that the stress test may miss 10-15% of pts. with CAD and if he has symptoms he is not to ignore them.
--- NOTE | 2020-01-14 15:11 | NM ---
MYOCARDIAL PERFUSION SCAN 01/14/20 PROVIDED CLINICAL HISTORY: Elevated troponins. FINDINGS: 27 millicuries technetium 99m labeled Sestamibi IV stress. 10.3 millicuries technetium 99m labeled Sestamibi IV rest. FINDINGS: There is a large area of moderate to severely reduced radiotracer activity involving the basal optica l inferior wall at the stress and rest on the nonattenuated corrected images. There is a normal appea micheal of the radiotracer accumulation in this region on the attenuated corrected images. There is oth erwise normal distribution of radiotracer throughout the left ventricular myocardium. Gated data demo nstrates inferior wall hypokinesis with calculated LVEF of 39%. Calculated TID is 1.08. IMPRESSION: 1. No evidence for reversibility to suggest ischemia. 2. Defect involving the inferior wall appears predominantly on the basis of diaphragmatic attenu ation given the improvement with attenuation correction. 3. Calculated LVEF 39%. POS: SARAH
[2020-01-14 15:51] VITALS: BP 166/84; TEMP 97.1
--- NOTE | 2020-01-14 20:18 | DIS ---
DATE OF ADMISSION: 01/11/2020 DATE OF DISCHARGE: 01/14/2020 DISCHARGE DIAGNOSES: 1. [id number] myocardial infarction type 2, likely due to demand ischemia from anemia. 2. Anemia. 3. Severe chronic obstructive pulmonary disease. 4. Mild decompensation of congestive heart failure, unspecified type, likely diastolic. 5. Tobacco abuse. 6. Chronic kidney disease stage 3. 7. Hypertension. 8. Thrombocytopenia. HISTORY OF PRESENT ILLNESS: The patient is a 69-year-old male, who presented via the emergency department. The patient had actually been admitted to the hospital in [place]. 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 He had pneumonia. He reportedly was not ready for discharge per the providers there, but was on the verge of leaving against medical advice and so he was ultimately discharged when he got home. He reported that he was just too weak to get up and around. He was having some falls and reported that he had had some black stools for several months. At that time, the patient was noted to have a hemoglobin of 6.8, BUN of 27, creatinine of 1.53, platelets 126. Chest x-ray showed some persistent bilateral infiltrates; however, the patient's white count was normal at 9.1, and he remained afebrile. HOSPITAL COURSE: The patient was admitted to the hospital. He received transfusion and his hemoglobin did somewhat improve. He had a COVID test which was negative. He reported he had had a negative test in the hospital in [place] as well. He had a stool occult blood that was negative and his renal function remained essentially stable. Ultimately, it was felt the patient did not have any persistent pneumonia, but x-ray findings were residual from his previous pneumonia; however, he did have significant COPD. The patient appeared to be a bit tachypneic and have a bit of work of breathing, but he stated he felt very comfortable, was at his baseline. He had an echocardiogram and it revealed essentially normal ejection fraction at 50% to 55%, and otherwise, fairly structurally normal heart in sinus rhythm. He was followed by Cardiology, and once cleared, he underwent a nuclear medicine stress test which showed no evidence of ischemic changes. He was felt to be stable for discharge on the new medications that were started in the hospital including the amlodipine and carvedilol. The patient also had evaluation by GI because of a history of GI bleeding and his significant anemia in spite of the negative stool hemoccult. Endoscopy revealed some plaque-like changes in the antrum of the stomach suggestive of intestinal metaplasia with multiple biopsies taken. The colonoscopy was notable for pandiverticulosis, no large masses, and two small polyps in the ascending colon that were removed. The patient's labs regarding his anemia were notable for INR of 1.14, PT of 14.5 with a PTT of 39.6. Iron was 43, TIBC 155, ferritin was 966.4, B12 689 and folate 712. It is concerning the patient was actually experiencing more of anemia from chronic disease and chronic kidney disease. Of note, the patient did receive an additional 2 units of transfusion prior to getting his stress test to ensure his hemoglobin was above 10 and he ultimately received a total of 4 units. Once the patient had stable cardiac evaluation and GI workup and an adequate hemoglobin and it was clear that his renal function was more of a chronic issue, he was felt to be stable for discharge. I attempted to clarify the patient's situation as he and his family had literally just moved here a day or two prior to him coming to the hospital. He has not established with a primary care provider. He did indicate he had oxygen at home, but was convinced he did not need it. He did have an evaluation by Physical therapy that recommended home health with some home physical therapy. I talked to [employer] and we are working on these; however, the patient's room air saturations were in the 90s and did not qualify for home oxygen therapy. We were working on getting the patient setup for home health; however, the patient's daughter indicated there was a of a great grandchild in the family and that they were leaving at 6 o'clock in the morning to go to a and the patient needed to be discharged this evening or he would not have any way to go home for the next five days. It was felt the patient was stable for that discharge and home health can be arranged upon his return on . It was clear the patient would likely benefit from some ongoing therapy and he was amenable to that plan. DISPOSITION: The patient is discharged to home. He is to have a heart healthy diet. ACTIVITY: As tolerated. He will have home health with home PT upon return from his trip. HOME MEDICATIONS: Include: 1. Amlodipine 10 mg daily. 2. Coreg 6.25 b.i.d. 3. Lasix 20 mg daily. 4. DuoNeb p.r.n. 5. Pantoprazole 40 mg daily. 6. We will also order a nebulizer machine with accessories and a rolling walker. FOLLOWUP: The patient was given a list of primary care providers with whom he can follow up and he can return to the hospital at any time should he have the need to do so. TIME SPENT: Time spent in discharge activities is greater than 40 minutes. Job ID: [id number]
[2020-01-14] MEDS ORDERED: Amlodipine 5 MG TAB PO SCH (21:00)
== END 2020-01-14 19:10 | disposition home health service (06) | DRG 280 ==
LOC: ERS 18:13 → 2NO 21:12
PROVIDERS: ADMIT Internal Medicine; ATTEND Internal Medicine
PROC: 30233N1 Transfusion of Nonautologous Red Blood Cells into Peripheral Vein, Percutaneous Approach (ICD-10-PCS; 2020-01-11)
PROC: 0DB68ZX Excision of Stomach, Via Natural or Artificial Opening Endoscopic, Diagnostic (ICD-10-PCS; principal; 2020-01-13)
PROC: 0DBK8ZX Excision of Ascending Colon, Via Natural or Artificial Opening Endoscopic, Diagnostic (ICD-10-PCS; 2020-01-13)
DX: I13.0 Hypertensive heart and chronic kidney disease with heart failure and stage 1 through stage 4 chronic kidney disease, or unspecified chronic kidney disease (principal); I21.A1 Myocardial infarction type 2; I50.33 Acute on chronic diastolic (congestive) heart failure; Q21.1 Atrial septal defect; Z20.828 Contact with and (suspected) exposure to other viral communicable diseases; J44.9 Chronic obstructive pulmonary disease, unspecified; N18.3 Chronic kidney disease, stage 3 (moderate); D69.6 Thrombocytopenia, unspecified; D63.1 Anemia in chronic kidney disease; F17.210 Nicotine dependence, cigarettes, uncomplicated; E11.22 Type 2 diabetes mellitus with diabetic chronic kidney disease; K63.89 Other specified diseases of intestine; I25.10 Atherosclerotic heart disease of native coronary artery without angina pectoris; K57.90 Diverticulosis of intestine, part unspecified, without perforation or abscess without bleeding; I08.1 Rheumatic disorders of both mitral and tricuspid valves; Z86.73 Personal history of transient ischemic attack (TIA), and cerebral infarction without residual deficits; Z88.0 Allergy status to penicillin; Z71.6 Tobacco abuse counseling; Z91.14 Patient's other noncompliance with medication regimen
CPT/HCPCS: 36415; 36416; 36430; 71045; 78452; 80048; 80053; 80061; 81003; 81015; 82274; 82550; 82553; 82607; 82728; 82746; 82805; 83036; 83540; 83550; 83880; 84484; 85014; 85018; 85025; 85046; 85610; 85730; 86850; 86860; 86870; 86880; 86900; 86901; 86905; 86922; 93005; 93010; 93017; 93306; 94640; 97139; A9500; C9113; J0360; J1940; J2405; J2704; J2930; J3490; J7620; P9016

== ENCOUNTER 2020-03-07 03:55 | Emergency (ER) | payer MEDICARE ==
[2020-03-07] MEDS ORDERED: Ketorolac Tromethamine 30 MG/ML VIAL ONE (04:12)
[2020-03-07] MEDS ORDERED: cloNIDine 0.1 MG TAB ONE (05:04)
--- NOTE | 2020-03-07 07:30 | RAD ---
RIGHT ELBOW 4 VIEWS: Date: 03/07/2020 INDICATION: History of right elbow pain. FINDINGS: There is mild osteoarthrosis of the right elbow joint There is mild joint capsular distention. No def inite displaced fracture is evident. There is soft tissue swelling surrounding the elbow joint. No er osive change is grossly evident. IMPRESSION: Soft tissue swelling and joint capsular distention of the right elbow. There is osteoarthritic change diffusely throughout the right elbow joint. No definite displaced fracture is evident. If clinically indicated, further evaluation with MRI of the right elbow may be helpful to evaluate for a radiograp hically occult fracture or possibly superimposed joint infection. CODE T. POS: BH
== END 2020-03-07 05:39 | disposition home or self-care (01) ==
LOC: ERS 03:55
DX: M19.021 Primary osteoarthritis, right elbow (principal); I10 Essential (primary) hypertension; Z86.73 Personal history of transient ischemic attack (TIA), and cerebral infarction without residual deficits; E11.9 Type 2 diabetes mellitus without complications; F17.210 Nicotine dependence, cigarettes, uncomplicated
CPT/HCPCS: 96372; J1885

== ENCOUNTER 2020-03-14 15:03 | Emergency (ER) | payer MEDICARE ==
[2020-03-14 16:04] LABS: #Lymphocytes 0.4 thou/uL (1.20-3.40); #Monocytes 0.7 thou/uL (0.11-0.59); #Neutrophils 10.8 thou/uL (1.40-6.50); %Eosinophils 0.2 % (0.0-10.0); %Lymphocytes 3.6 % (21.0-51.0); %Neutrophils 90.2 % (42.0-75.0); Hemoglobin 9.4 g/dL (14.0-18.0); Mean Corpuscular HGB CONC 33.3 g/dL (32.0-36.0); Mean Corpuscular Hemoglobin 29.3 pg (27.0-31.0); Mean Corpuscular Volume 87.8 fL (78.0-98.0); Mean Platelet Volume 9.2 fL (7.4-10.4); Platelet Count 166 thou/uL (130-400); RBC Distribution Width 15.2 % (11.5-14.5)
[2020-03-14] MEDS ORDERED: Ketorolac Tromethamine 30 MG/ML VIAL ONE (16:24)
[2020-03-14] MEDS ORDERED: Acetaminophen 325 MG TAB ONE (16:25)
[2020-03-14 16:28] LABS: ALT (SGPT) 15 U/L (8-55); AST (SGOT) 24 U/L (5-34); Albumin 3.4 g/dL (3.4-4.8); Alkaline Phosphatase 137 U/L (40-110); Anion Gap 15 mmol/L (10-20); BUN (Urea Nitrogen) 49 mg/dL (8.4-25.7); Bilirubin, Total 1.3 mg/dL (0.2-1.2); Calc. Creatinine Clearance 0 mL/min (70-130); Calcium 9.5 mg/dL (7.8-10.44); Carbon Dioxide 22 mmol/L (23-31); Chloride 105 mmol/L (98-107); Estimated GFR-MDRD 23; Globulin 4.7 g/dL (2.4-3.5); Glucose 119 mg/dL (83-110); Protein, Total 8.1 g/dL (5.8-8.1); Sodium 138 mmol/L (136-145)
--- NOTE | 2020-03-14 16:32 | RAD ---
Right elbow 3 views HISTORY: Fall. Injury. FINDINGS: Marked elevation of the distal humeral fat pads on the lateral view. Radiocapitellar alignm ent is maintained. Prominent osteophytosis throughout the elbow. Subtle minimally displaced oblique fracture extends through the radial head on the oblique view. IMPRESSION : Intra-articular nondisplaced radial head fracture with large hemarthrosis. Prominent degenerative changes.
--- NOTE | 2020-03-14 16:48 | RAD ---
RIGHT SHOULDER: 03/14/20 Three views. HISTORY: Shoulder pain. FINDINGS: No evidence of fracture or dislocation. AC joint is normally aligned and clavicle is intact. IMPRESSION: No acute findings. POS: AGW
== END 2020-03-14 18:40 | disposition home or self-care (01) ==
LOC: ERS 15:03
DX: S52.124A Nondisplaced fracture of head of right radius, initial encounter for closed fracture (principal); M19.021 Primary osteoarthritis, right elbow; I10 Essential (primary) hypertension; M06.9 Rheumatoid arthritis, unspecified; E11.9 Type 2 diabetes mellitus without complications; F17.210 Nicotine dependence, cigarettes, uncomplicated; Z79.899 Other long term (current) drug therapy; Z86.73 Personal history of transient ischemic attack (TIA), and cerebral infarction without residual deficits; W18.11XA Fall from or off toilet without subsequent striking against object, initial encounter
CPT/HCPCS: 80053; 85025; J1885

== ENCOUNTER 2021-05-23 10:11 | Outpatient (CLI) | payer MEDICARE, MEDICAID | END 2021-05-23 10:12 | disposition home or self-care (01) | LOC: CT 10:11 | PROVIDERS: ATTEND Family Medicine | DX: R91.1 Solitary pulmonary nodule (principal); I51.7 Cardiomegaly; I25.10 Atherosclerotic heart disease of native coronary artery without angina pectoris; I70.0 Atherosclerosis of aorta; J90 Pleural effusion, not elsewhere classified | CPT/HCPCS: 71250 ==

== ENCOUNTER 2021-07-18 19:30 | Emergency (ER) | payer MEDICARE, MEDICAID | END 2021-07-18 21:44 | LOC: ERS 19:30 | DX: U07.1 COVID-19 (principal); Z86.73 Personal history of transient ischemic attack (TIA), and cerebral infarction without residual deficits; E11.9 Type 2 diabetes mellitus without complications; I11.0 Hypertensive heart disease with heart failure; I50.9 Heart failure, unspecified; D64.9 Anemia, unspecified; Z87.891 Personal history of nicotine dependence; J44.9 Chronic obstructive pulmonary disease, unspecified | CPT/HCPCS: 71045 ==